=== PATIENT | male | born 1990 | race Caucasian/White ===

== ENCOUNTER 2017-01-06 23:38 | Emergency (ER) | payer OTHER ==
[~2017-01-06] VITALS: Ht 172.7 cm; Wt 97.5 kg
[2017-01-07 00:13] VITALS: Ht 172.7 cm; Wt 97.5 kg
--- NOTE | 2017-01-07 00:51 | ERD ---
ER Documentation Chief Complaint Date/Time DATE: 01/07/17 TIME: 00:48 Chief Complaint LEFT GROIN PAIN PT STATES "HE HEARD A BONE POP" HPI This pleasant 26-year-old male patient presents to the emergency department for left groin pain. Patient is having difficulty expressing pain, pain is intermittent with certain movements. Localized in groin and inner thigh, reported severe when activated. Patient reports pain has been intermittent for the last 2 weeks, denies injury, reports that he is in the [employer], his physical then does activities. Patient denies dysuria, hematuria, nausea or vomiting. ROS All systems reviewed and are negative except as per history of present illness. Medications Home Meds Active Scripts Diazepam* (Valium*) 5 Mg Tablet, 5 MG PO Q8, #10 TAB Prov:LAUREN,MAL 01/07/17 Hydrocodone/Acetaminophen (Hosston 5-325 Tablet) 1 Each Tablet, 1 TAB PO Q6H Y for PAIN, #7 TAB Prov:LAUREN,MAL 01/07/17 Allergies Allergies: Coded Allergies: No Known Drug Allergies (Verified Allergy, Unknown, 01/07/17) Physical Exam Vitals Vital Signs Date Time Temp Pulse Resp B/P Pulse Ox O2 Delivery O2 Flow Rate FiO2 01/07/17 00:13 99.1 81 16 159/101 95 Vitals stable, triage notes reviewed Physical Exam Const: No acute distress Head: Eyes: ENT: Normal External Ears, Nose and Mouth. Neck: Resp: Clear to auscultation bilaterally Cardio: Abd: Soft, non tender, non distended. Left groin soft, male genitalia normal , testes descended, no hernia Skin: No petechiae or rashes, lesions papules or abrasions Back: No midline or flank tenderness Ext: Extremity -left hip Skin: No laceration Compartments: Soft Motor: Full active range of motion hip/knee/ankle/foot, full rotation of left hip in socket, no trochanter pain, no bursitis Sensation: Intact to light touch all surfaces. Bones: Nontender pelvis/knee/proximal tibia/ malleoli/foot Joints: No effusion or laxity Pulses/Perfusion: 2+ DP, Capillary refill < 2 seconds Neur: Awake and alert Psych: Normal Mood and Affect Results 24 hrs Laboratory Tests Test 01/07/17 01:05 Urine Color LT. YELLOW Urine Clarity CLEAR Urine pH 8.0 Urine Specific [place] 1.010 Urine Ketones NEGATIVE Urine Nitrite NEGATIVE Urine Bilirubin NEGATIVE Urine Urobilinogen 0.2 E.U./dL Urine Leukocyte Esterase NEGATIVE Urine Hemoglobin NEGATIVE Urine Glucose NEGATIVE% Urine Total Protein NEGATIVE Current Medications Medications (Trade) Dose Ordered Sig/Randy Route PRN Reason Start Time Stop Time Status Last Admin Dose Admin Ketorolac Tromethamine (Toradol) 15 mg ONCE STAT IM 01/07/17 00:54 01/07/17 00:56 DC 01/07/17 01:09 Diazepam (Valium) 5 mg ONCE ONCE PO 01/07/17 01:00 01/07/17 01:01 DC 01/07/17 01:06 Acetaminophen/ Hydrocodone Bitart (Hosston (5/325)) 1 tab ONCE ONCE PO 01/07/17 02:30 01/07/17 02:31 DC 01/07/17 02:19 Urine negative for any evidence of infection Procedures/MDM This pleasant 26-year-old male patient presents to emergency department for intermittent left groin pain. Pain is reproducible only with certain positions. Nurse practitioner is unable to reproduce during physical exam. Patient straight leg raises are negative at 90. Patient is a [employer] and is physically fit, runs 2-3 miles daily. Patient receives Toradol, and Valium for pain which temporarily helped his symptoms. Patient sat up and felt pain. Is given Hosston will be discharged home with Hos[place], Valium, and instruction to follow-up with primary care physician for referral to physical therapy if indicated. Rest, ice, return to emergency department if symptoms fail to improve as anticipated. I feel the patient is stable for discharge at this time. I have discussed results, examination findings, the treatment plan with the patient and family present prior to discharge. Indications for emergent reevaluation, side effects of medication were also discussed. All questions were answered. Patient verbalizes understanding and agrees with plan of care. Departure Diagnosis: Primary Impression: Pulled muscle Condition: Good Patient Instructions: Groin Strain Referrals: [facility] Additional Instructions: Thank you for for coming to [facility] for your care today. Please ask your nurse or provider if you have questions about your care today and do not leave until all your questions have been answered. Please use any medications given as directed and follow-up with your doctor (or the doctor you were referred to) in the next 2-3 days. If you do not have a primary care doctor you may follow up at the [facility] (listed below). You may also use motrin and tylenol as needed for fever and/or pain unless instructed otherwise by your provider or nurse. Indications for more urgent follow-up have been discussed, but you may return to the Emergency Department at ANY time for any worrisome or worsening symptoms. If you have abdominal pain, please know that no test or exam you received is perfect and you should follow up within 8 hours for continued pain. If you had any imaging studies today, such as an X-Ray or CT Scan, these studies will be reviewed later by a radiologist. You will be called if there are important findings that were not identified today, so make sure the contact information you provided at registration is correct. If you received any narcotic pain control medicine today, such as Vicodin, Morphine or Dilaudid, your coordination and judgment may be affected for a number of hours. Please do not drive or operate heavy machinery, and you may want someone to assist you at home. If you were given a prescription for narcotic medication, be aware that it is very addictive- use sparingly and only if necessary. MAL AGUILAR Jan 07, 2017 00:51
[2017-01-07] MEDS ORDERED: KETOROLAC 15 MG INJ IM STA (00:54)
[2017-01-07] MEDS ORDERED: DIAZEPAM 5 MG TAB PO ONE (01:00)
[2017-01-07 01:24] LABS: ADD UMIC NO; UR BILIRUBIN (Dip) NEGATIVE (NEGATIVE); UR BLOOD (Dip) NEGATIVE (NEGATIVE); UR CLARITY CLEAR (CLEAR); UR COLOR LT. YELLOW (YELLOW); UR GLUCOSE (Dip) NEGATIVE (NEGATIVE); UR KETONES (Dip) NEGATIVE (NEGATIVE); UR LEUKOCYTE ESTERASE (Dip) NEGATIVE (NEGATIVE); UR NITRITE (Dip) NEGATIVE (NEGATIVE); UR TOTAL PROTEIN (Dip) NEGATIVE (NEGATIVE); UR UROBILINOGEN (Dip) 0.2 E.U./dL (0.1-1.0)
[2017-01-07] MEDS ORDERED: HYDR-906 PO (02:10)
[2017-01-07] MEDS ORDERED: DIAZ-90 PO (02:10)
[2017-01-07] MEDS ORDERED: HYDROCODONE/APAP (5/325) TAB PO ONE (02:30)
== END 2017-01-07 02:32 | disposition home or self-care (01) ==
LOC: FTE 23:38
DX: R10.32 Left lower quadrant pain (principal)
CPT/HCPCS: 81003; 96372; 99284; J1885

== ENCOUNTER 2019-01-20 12:39 | Emergency (ER) | payer OTHER ==
[~2019-01-20] VITALS: Ht 170.2 cm; Wt 93.4 kg
[~2019-01-20 12:39] MED LIST: DIAZ5TAB PO; HYDR-4011 PO
[2019-01-20 12:40] VITALS: Ht 170.2 cm; Wt 93.4 kg
--- NOTE | 2019-01-20 12:52 | ERD ---
ER Documentation Chief Complaint Chief Complaint LEFT KNEE PAIN X MONTHS HPI 28-year-old male, with history of hypertension with poor compliance with treatment, presents to the emergency department, complaining of 6 months with intermittent episodes of peripatellar left knee pain, dull, 5/10, predominantly after running. The patient currently is in the and he runs every day. No history of direct trauma, denies fever or chills, no local edema, erythema or warmth. ROS All systems reviewed and are negative except as per history of present illness. Medications Home Meds Active Scripts Acetaminophen* (Tylenol*) 325 Mg Tablet, 2 TAB PO Q6 PRN for PAIN AND OR ELEVATED TEMP, #20 TAB Prov:ISAAC GREEN MD 01/20/19 Ibuprofen* (Motrin*) 400 Mg Tab, 400 MG PO Q6H PRN for PAIN AND OR ELEVATED TEMP, #30 TAB Prov:ISAAC GREEN MD 01/20/19 Baclofen* (Baclofen*) 10 Mg Tablet, 10 MG PO Q8, #15 TAB Prov:ISAAC GREEN MD 01/20/19 Diazepam* (Valium*) 5 Mg Tablet, 5 MG PO Q8, #10 TAB Prov:LAUREN,MAL 01/07/17 Hydrocodone/Acetaminophen ([place] 5-325 Tablet) 1 Each Tablet, 1 TAB PO Q6H PRN for PAIN, #7 TAB Prov:LAUREN,MAL 01/07/17 Allergies Allergies: Coded Allergies: No Known Drug Allergies (Verified Allergy, Unknown, 01/07/17) PMhx/Soc Medical and Surgical Hx: pt denies Medical Hx, pt denies Surgical Hx Hx Alcohol Use: No Hx Substance Use: No Hx Tobacco Use: No FmHx Family History: No diabetes, No coronary disease Physical Exam Vitals Vital Signs Date Temp Pulse Resp B/P (MAP) Pulse Ox O2 O2 Flow FiO2 Time Delivery Rate 01/20/19 98.0 79 16 149/89 98 Room Air 14:34 (109) 01/20/19 87 16 165/116 98 12:40 (132) Physical Exam Patient alert, oriented, vital signs stable. HEAD: Normocephalic, atraumatic. EYES: PERRLA, EOMI, Sclera and conjunctiva appear normal. NOSE: Clear and patent nostrils. EARS: Canals clear, tympanic membranes WNL. MOUTH: normal lips and tongue, no oral lesions. THROAT: Normal oropharynx, no tonsillar exudates. NECK: Supple, No lymphadenopathy. Full ROM without pain or tenderness. HEART: RRR, no rubs, murmurs, clicks or gallops. LUNGS: Clear to auscultation. ABDOMEN: Soft, non-tender without masses or hepatosplenomegaly. EXTREMITIES: No edema bilaterally. Left knee: Normal inspection, full range of motion, with mild peripatellar crepitus, distal neurovascular exam intact. BACK: Full ROM, no deformity, normal back exam NEURO: Cranial nerves grossly intact, no motor or sensory deficit SKIN: No rashes, no petechia. Results 24 hrs Patient: EARNESTINE CHAN : 1990 Age: 28 Sex: M MR #: [id number] DOS: 01/20/19 1300 Ordering MD: ISAAC GEREN MD Location: [facility] Room/Bed: PROCEDURE: Left knee series CLINICAL INDICATION: Pain. TECHNIQUE: 3 views. AP, lateral, oblique(s). COMPARISON: None FINDINGS: No fractures or lesions are noted. Joint spaces are well maintained. No significant osteophytosis is noted. No effusion is identified. No erosions are visualized. The soft tissues are unremarkable. IMPRESSION: 1. No significant bony abnormalities are identified. Procedures/MDM left knee pain: no red flags. Differential diagnosis include but not limited to: Knee contusion, meniscus injury, tendon/ligament injury, arthritis; low suspicion for fracture, dislocation, septic arthritis. Neurovascular exam grossly intact. no clinical findings suggestive of acute infectious process, no acute deformity, no edema, no rashes. Pertinent Data: X-rays: No fracture or dislocation Physical examination and clinical presentation consistent most likely with patellofemoral syndrome and derangement of the left knee. In regards of his hypertension, no clinical evidence of hypertensive emergency or urgency, the p atient refuses to take medication at this time, he will follow-up with his primary doctor. Results and clinical impression discussed with the patient who agrees with management. The patient is stable to be treated outpatient and will be discharged home with recommendations for ice, physical therapy, NSAIDs 3 times daily for 5 days and close monitoring. The patient was instructed to follow up with the primary care provider in the next 48h. If symptoms persist, worsen or new symptoms develop, then patient s michaeluld return to the ED immediately. Instructions explained and given to patient with acknowledgment and demonstrated understanding. Disclaimer: Inadvertent spelling and grammatical errors are likely due to EHR/dictation software use and do not reflect on the overall quality of patient care. Also, please note that the electronic time recorded on this note does not necessarily reflect the actual time of the patient encounter. Departure Diagnosis: Primary Impression: Derangement of knee, left Additional Impressions: Hypertension, uncontrolled Patellofemoral arthralgia of left knee Condition: Stable Additional Instructions: Thank you very much for allowing us to participate in your care. Your health and safety is our top priority at [facility]. The evaluation in the emergency department has been done to rule out an acute emergency. Chronic, [id number] conditions may have not been evaluated; therefore, you need to follow up with a primary care provider in the next 48h. If symptoms persist, worsen or new symptoms develop, then patient should return to the ED immediately. Call your primary care doctor TOMORROW for an appointment during the next 2-4 days and bring all the information provided. Have prescriptions filled and follow precisely the directions on the label. If the symptoms get worse and your provider is unavailable, return to the Emergency Department immediately. ISAAC GREEN MD Jan 20, 2019 12:52
[2019-01-20] MEDS ORDERED: IBUP-1561 PO (13:57)
[2019-01-20] MEDS ORDERED: ACET325T33 PO (13:57)
[2019-01-20] MEDS ORDERED: BACL10TA PO (13:57)
[2019-01-20 14:34] VITALS: BP 149/89; PULSE 79; RESP 16
== END 2019-01-20 14:36 | disposition home or self-care (01) ==
LOC: FTE 12:39
DX: M23.92 Unspecified internal derangement of left knee (principal); I10 Essential (primary) hypertension; M22.2X2 Patellofemoral disorders, left knee
CPT/HCPCS: 73562